=== PATIENT | female | born 1945 | race Caucasian/White ===

== ENCOUNTER 2024-01-09 06:32 | Observation (INO) ==
[~2024-01-09 06:32] MED LIST: Naloxone 0.4 mg VIAL 0.4 mg/ml 1 ml VIAL IV PRN
[2024-01-09 07:42] LABS: Rapid COVID-19 Molecular Undetected (Undetected)
[2024-01-09] MEDS ORDERED: Lidocaine 2.5%/Prilocain 2.5% 5 GM TUBE ONE (07:44)
[2024-01-09] MEDS ORDERED: Heparin 5000 UNITS/ML 1 mL VIAL ONE (11:12)
[2024-01-09] MEDS ORDERED: ceFAZolin 2 GM PREMIX 2 GM/50 ML BAG ONE (11:12)
[2024-01-09] MEDS ORDERED: Rocuronium 50 mg VIAL 10 mg/ml 5 ml VIAL (50 mg) ONE ×2 (12:33→13:48)
[2024-01-09] MEDS ORDERED: Bupivacaine 0.25% SDV 30 ML ONE (12:45)
[2024-01-09] MEDS ORDERED: Methylene Blue 1% (ANTIDOTE) 10 MG/ML 10 ML SDV VIAL IVPB ONE (12:45)
[2024-01-09] MEDS ORDERED: Bupivacaine 0.5% SDV PF 30ML VIAL ONE (12:52)
[2024-01-09] MEDS ORDERED: ISOSULFAN BLUE 1% 5 ML VIAL 10 MG/ML SUBCUT ONE (13:06)
[2024-01-09] MEDS ORDERED: Clindamycin 900 MG/50 **NS BAG 0 MG/0 ML BAG ONE (13:45)
[2024-01-09] MEDS ORDERED: Lidocaine 2% PF 5 ML VIAL ONE (13:48)
[2024-01-09] MEDS ORDERED: fentaNYL 100 mcg/2 ml 50 MCG/ML VIAL ONE ×3 (13:48→18:20)
[2024-01-09] MEDS ORDERED: Midazolam 2 mg/2 ml VIAL 1 mg/ml 2 ml VIAL (2 mg) ONE (13:48)
[2024-01-09] MEDS ORDERED: Propofol 10 MG/ML 20 ML BTL ONE (13:48)
[2024-01-09] MEDS ORDERED: Dexamethasone IV 4 MG/ML VIAL 1 ml VIAL ONE (14:20)
[2024-01-09] MEDS ORDERED: Ondansetron 4 mg VIAL 2 MG/ML 2 ml VIAL ONE (14:20)
[2024-01-09] MEDS ORDERED: Acetaminophen IV 1 GM/100ML 1,000 MG/100 ML BAG IV ONE (14:41)
[2024-01-09] MEDS ORDERED: Metoclopramide 5 MG/ML VIAL (10 mg) ONE (16:39)
[2024-01-09] MEDS ORDERED: ceFAZolin VIAL VIAL ONE (16:51)
[2024-01-09] MEDS ORDERED: Benzocaine/Menthol LOZ PO PRN (17:07)
[2024-01-09] MEDS ORDERED: ceFAZolin VIAL 2 GM in NS 0.9% 100 ml BAG 100 ML IVPB SCH (18:00)
[2024-01-09] MEDS: fentaNYL 100 mcg/2 ml 50 MCG/ML VIAL IV PRN (18:22)
[2024-01-09] MEDS: Buffered Lidocaine 1% SYRIN 1 ml INTRADERM ONE (20:45)
[2024-01-09] MEDS: HYDROcodone/ACETAMIN 5/325 mg TAB PO PRN (20:53)
[2024-01-09] MEDS: ceFAZolin 2 GM PREMIX 2 GM/50 ML BAG IV SCH (22:08)
[2024-01-09] MEDS: Heparin 5000 UNITS/ML 1 mL VIAL SUBCUT SCH (22:08)
[2024-01-09] MEDS: Lactated Ringers 1000 ml BAG 1,000 ML IV SCH (22:32)
[2024-01-10] MEDS: Morphine 2 MG/ML SYRINGE IV PRN (06:39)
[2024-01-10] MEDS: Fluticasone NASAL SPRAY 50MCG 16 gm SPRAY BTL BOTH NARES SCH (09:30)
[2024-01-10] MEDS ORDERED: HYDROcodone/ACETAMIN 5/325 mg TAB PO PRN (10:52)
[2024-01-10 13:50] VITALS: BP 128/55
== END 2024-01-10 16:15 | disposition home or self-care (01) ==
LOC: INTOOBSV 06:32 → AA 06:32 → SSU 18:20
PROVIDERS: ADMIT Student in an Organized Health Care Education/Training Program; ATTEND Student in an Organized Health Care Education/Training Program